=== PATIENT | female | born 1940 | race Two or more races ===

== ENCOUNTER 2016-11-16 13:45 | Outpatient (CLI) | payer MEDICARE ==
[2016-11-16] MEDS ORDERED: ETHYL CHLORIDE SPRAY 1 EA BOTTLE TP ONE (14:30)
== END 2016-11-16 23:59 | disposition home or self-care (01) ==
LOC: WOU 13:45
PROVIDERS: ATTEND Podiatrist Foot & Ankle Surgery
DX: L60.0 Ingrowing nail (principal); L03.032 Cellulitis of left toe
CPT/HCPCS: 11730; 11732; 87070; 87077; 87186; A6402